=== PATIENT | female | born 1995 | race Two or more races ===

== ENCOUNTER 2020-11-08 03:57 | Emergency (ER) | payer MEDICAID ==
[~2020-11-08] VITALS: Ht 167.6 cm; Wt 70.3 kg
[~2020-11-08 03:57] MED LIST: FAMOTIDINE20 MG ORAL; IBUPROFEN400 MG ORAL; MYLANTA MAXIMU355 ML PO; PRILOSEC OTC20 MG ORAL; TRAMADOL HCL50 MG ORAL; TYLENOL325 MG ORAL
--- NOTE | 2020-11-08 04:15 | NUR ---
ED Nurse Note: Patient came in the ED complaining of left sided facial weakness that started on 11/05/2020. Went to another ER on 11/07/2020 was prescribed steroid and antiviral, reports feeling worse since taking medications. today c/o left sided weakness. AOx4, pleasant.
[2020-11-08 04:23] VITALS: BP 106/71
--- NOTE | 2020-11-08 04:24 | Emergency Room Report ---
History of Present Illness General Chief Complaint: Pain Source: Patient Present Illness HPI 25-year-old female here with left facial weakness. Patient went to the emergency department at [facility] yesterday and says that she was diagnosed with Pickett's palsy. She was given a prescription for prednisone and valacyclovir. She has been taking his medications as prescribed today and came to this emergency department because "the left half of my face is still weak." Patient also says that she feels some generalized malaise today. Denies headache, vision changes, other focal numbness or weakness, slurred speech, word finding difficulty, chest pain, palpitation, shortness of breath, back pain, abdominal pain, nausea, vomiting, diarrhea, dysuria. Allergies: Coded Allergies: No Known Allergies (Unverified , 03/03/15) COVID-19 Screening Contact w/high risk pt: No Experienced COVID-19 symptoms?: No COVID-19 Testing performed [employer]: Yes - 2 weeks ago COVID-19 Screening: Negative COVID-19 COVID-19 Testing Source: unknown Patient History Now: No Nursing Documentation-[facility] Past Medical History: No History, Except For Review of Systems All Other Systems: negative except mentioned in HPI Physical Exam Vital Signs Date Time Temp Pulse Resp B/P (MAP) Pulse Ox O2 Delivery O2 Flow Rate FiO2 11/08/20 04:01 98.8 97 18 106/71 (83) 100 Room Air Sp02 EP Interpretation: reviewed, normal General Appearance: no apparent distress, alert, non-toxic Head: normocephalic, atraumatic Eyes: bilateral eye normal inspection, bilateral eye PERRL ENT: hearing grossly normal, normal pharynx, no angioedema, normal voice Neck: full range of motion, supple/symm/no masses Respiratory: chest non-tender, lungs clear, normal breath sounds, speaking full sentences Cardiovascular #1: regular rate, rhythm, no edema Cardiovascular #2: 2+ carotid (R), 2+ carotid (L), 2+ radial (R), 2+ radial (L), 2+ dorsalis pedis (R), 2+ dorsalis pedis (L) Gastrointestinal: normal bowel sounds, non tender, soft, non-distended, no guarding, no rebound Rectal: deferred Genitourinary: normal inspection, no CVA tenderness Musculoskeletal: back normal, normal range of motion, calf tenderness, gait/station normal, non-tender Neurologic: alert, motor strength/tone normal, oriented x3, sensory intact, responsive, speech normal, other - Left facial weakness that does not spare the left forehead. 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 No other neurologic abnormalities Psychiatric: judgement/insight normal, memory normal, mood/affect normal, no suicidal/homicidal ideation Reflexes: 3+ bicep (R), 3+ bicep (L), 3+ tricep (R), 3+ tricep (L), 3+ knee (R), 3+ knee (L) Lymphatic: no adenopathy Medical Decision Making Diagnostic Impression: Primary Impression: Pickett's palsy ER Course 25-year-old female here with left facial weakness. Patient was diagnosed with Pickett's palsy yesterday at an outside emergency department and was given prescriptions for prednisone and valacyclovir which she has been taking earlier today. She came here because "my face is still numb." Patient had left-sided facial weakness that did not spare the forehead consistent with Pickett's palsy. Did not have any other neurologic abnormalities. I explained to the patient that the symptoms may last for weeks. She was given an eye patch and told to continue taking the current medication regimen. She expressed understanding and was discharged. Last Vital Signs Date Time Temp Pulse Resp B/P (MAP) Pulse Ox O2 Delivery O2 Flow Rate FiO2 11/08/20 04:01 98.8 97 18 106/71 (83) 100 Room Air Disposition: HOME, SELF-CARE Condition: Stable Referrals: [facility] Patient Instructions: Pickett Chago Huston M.D. Nov 08, 2020 04:24
--- NOTE | 2020-11-08 04:40 | NUR ---
ER DISCHARGE NOTE: Patient is cleared to be discharged per ERMD, pt is aox4, on room air, with stable vital signs. pt was given dc instructions, pt was able to verbalize understanding, pt id band removed. pt is able to ambulate with steady gait. pt took all belongings.
== END 2020-11-08 04:40 | disposition home or self-care (01) ==
LOC: EMR 04:08
DX: G51.0 Bell's palsy (principal)
CPT/HCPCS: 99281